=== PATIENT | male | born 1960 | race Caucasian/White ===

== ENCOUNTER 2016-09-25 00:44 | Day surgery (SDC) | payer OTHER ==
[2016-09-25] MEDS ORDERED: Lidocaine Topical 2% 30 mL Jelly ONE (10:41)
== END 2016-09-25 23:59 | disposition home or self-care (01) ==
LOC: END 00:44
PROVIDERS: ATTEND Internal Medicine Gastroenterology
DX: K21.9 Gastro-esophageal reflux disease without esophagitis (principal); R13.10 Dysphagia, unspecified